=== PATIENT | female | born 2000 | race Hispanic/Latino ===

== ENCOUNTER 2018-03-29 20:08 | Emergency (ER) | payer BC ==
[2018-03-29 20:08] VITALS: BMI 18.5
[2018-03-29 20:40] VITALS: BP 131/77; PULSE 78; O2SAT 99
--- NOTE | 2018-03-29 20:49 | ED PDOC ---
Arrival/HPI - General Chief Complaint: Eye Problem Time Seen by Provider: 03/29/18 20:47 Historian: Patient - History of Present Illness Narrative History of Present Illness (Text): 03/29/18 20:30 pt p/w + sudden onset of right eye irritation/tearing/intense itching while [place]; pt states similar episode occurred to her right eye ~ [place] that time and states it improved on its own within 1 day; pt states she does not recollect using any new/current make ups, no new foods/ detergents/soaps/clothing, etc.; pt states no vision changes but is blurry from the right eye; pt did noted some faint yellow discharge prior to Emergency department arrival; pt denied bleeding, no headache, no fever/chills/sweats, no cp/sob/palpitations, no abd pain, no n/v, no numbness/tingling, no urinary/ bowel changes, no fall/trauma/sick contact, no travel. pt is here for further eval; Pt's without other complaints. PCP: Dr Hester Past medical hx: unremarkable Time/Duration: Prior to Arrival Symptom Onset: Sudden Symptom Course: Unchanged Severity Level: Severe Activities at Onset: Rest Context: Other (walking home from the train station) Past Medical History - Provider Review Nursing Documentation Reviewed: Yes - Travel History Have you recently traveled outside [place] w/in the past 3 mons?: No - Past History Past History: No Previous - Infectious Disease Hx of Infectious Diseases: None - Reproductive Menopause: No Currently : Unknown - Psychiatric Hx Psychophysiologic Disorder: No Hx Substance Use: No - Past Surgical History Past Surgical History: No Previous - Suicidal Assessment Feels Threatened In Home Enviroment: No Family/Social History - Physician Review Nursing Documentation Reviewed: Yes Family/Social History: No Known Family HX Smoking Status: Never Smoked Hx Alcohol Use: No Hx Substance Use: No Hx Substance Use Treatment: No Allergies/Home Meds Allergies/Adverse Reactions: Allergies No Known Allergies Allergy (Verified 03/29/18 20:12) Home Medications: Home Meds Medication Instructions Recorded Confirmed Cetirizine HCl [Zyrtec] 1 tab PO PRN PRN 03/29/18 03/29/18 Review of Systems - Review of Systems Constitutional: Normal Eyes: Other (right eye itching/swelling; teary). absent: Vision Changes, Photophobia, Eye Pain ENT: Normal Respiratory: Normal Cardiovascular: Normal Gastrointestinal: Normal Genitourinary Female: Normal Musculoskeletal: Normal Skin: Normal Neurological: Normal Endocrine: Normal Hemo/Lymphatic: Normal Psychiatric: Normal Physical Exam - Physical Exam Narrative Physical Exam (Text): 03/29/18 20:30 General: alert/awake, GCS = 15, oriented x 3, resting in bed, uncomfortable, cooperative, interactive; NAD Head: NC/AT EYE: PERRLA, EOMI, sclera anicteric, no nystagmus, no photophobia; noted right eye/eyelid mild swelling, + right lateral scleral clear injection/swelling is noted, does not traverse the cornea; no gross/copious eye discharge is noted, no gross bleeding, vision intact b/l; no FB/masses noted; no eyelid swelling/ tenderness/erythema is noted Facial: WNL Oral: uvula/tongue are midline, no exudate/lesions, no drooling/stridor, no dysphonia; intact dentitions; moist oral mucosa NECK: intact ROM, no midline tenderness, no nuchal rigidity, no meningeal signs ; no step off Chest: CTA b/l, no w/r/r; no tachypenia, no accessory muscle use noted Chest Wall: no crepitus, no lesions, no gross deformities, no focal tenderness Cardiac: +S1, +S2, no m/r/r, no tachycardia Abdominal: +BS, soft/nd/nt, well nourished patient; no masses/rebound/guarding/ rigidity; no barron's sign, no mcburney's point tenderness Extremities: intact ROM, strength 5/5 grossly intact in all limbs, neurovasc intact b/l; + ambulatory; reflex +2/2 BACK: no step off, no midline tenderness, NO crepitus, no gross deformities noted; Intact ROM SKIN: cap refill < 1 sec, no ulcerations, no petechiae, no rashes; no gross pallor, no urticarial changes noted NEURO: CNII-XII WNL, no facial asymmetries, no slurr speech, oriented x 3 NIH stroke scale ~ 0 Psych: normal insight, normal affect; follows command with ease Vital Signs Reviewed: Yes Vital Signs Temp Pulse Resp BP Pulse Ox 03/29/18 20:12 99.1 F 78 16 131/77 99 Temperature: Afebrile Blood Pressure: Normal Pulse: Regular Respiratory Rate: Normal Appearance: Positive for: Well-Appearing, Non-Toxic, Uncomfortable. No: Comfortable, Ill-Appearing Pain Distress: None Mental Status: Positive for: Alert and Oriented X 3 - Systems Exam Head: Present: Atraumatic, Normocephalic Medical Decision Making ED Course and Treatment: 03/29/182049 Impression: right eye irritation i have consider all the differential diagnosis regarding pt's chief medical complaints/clinical findings, including but are not limited to: right eye irritation A/P: right eye irritation - supportive care - observe/reevaluation 2199 pt is feeling improved right eye/scleral swelling has improved pt is now able to open right eye with ease, visual field remains intact pt/family are made aware of pt's medical results pt is encouraged/instructed on proper eye hygiene (not to rub her eyes with either hands and to keep left hand to left eye and right hand to right eye only) pt is encouraged no new foods/clothing/makeups/detergents/soaps, any new products pt will f/u as directed pt will be discharged home Re-evaluation Time: 22:00 Reassessment Condition: Improved - Medication Orders Current Medication Orders: Discontinued Medications Diphenhydramine HCl (Benadryl) 25 mg PO ONCE ONE Stop: 03/29/18 20:49 Last Admin: 03/29/18 21:10 Dose: 25 mg Prednisone (Prednisone Tab) 60 mg PO STAT ONE Stop: 03/29/18 20:49 Last Admin: 03/29/18 21:10 Dose: 60 mg Disposition/Present on Arrival - Present on Arrival Any Indicators Present on Arrival: No History of DVT/PE: No History of Uncontrolled Diabetes: No Urinary Catheter: No History of Decub. Ulcer: No History Surgical Site Infection Following: None - Disposition Have Diagnosis and Disposition been Completed?: Yes Diagnosis: Eye swelling, right, Allergic conjunctivitis, right eye Disposition: HOME/ ROUTINE Disposition Time: 22:10 Patient Plan: Discharge Patient Problems: Current Active Problems Problem Status Onset Allergic conjunctivitis, right eye Acute Eye swelling, right Acute Condition: STABLE Discharge Instructions (ExitCare): Conjunctivitis (Noninfectious Pinkeye) Print Language: SAUDI ARABIAN Additional Instructions: Make sure to see your doctor in 1-2 days DRINK PLENTY OF FLUIDS take your medications as prescribed AVOID new products/detergents/clothing etcs dont cross your hands when taking care of your eyes, encourage safe hygiene RETURN TO ED IF worse pain, CANT SEE, cant breath, persistent vomiting, high fever >101-102 for hours, altered behavior, slurr speech, facial changes, focal weakness (arm/leg or both), unable to urinate, heavy/persistent bleeding, passing out, chest pain, or other medical emergencies Prescriptions: DiphenhydrAMINE [Benadryl] 25 mg PO QID PRN #30 cap PRN Reason: Itching / Pruritus Ofloxacin Ophth 0.3% [Ocuflox Ophth 0.3%] 1 - 2 drop OD QID 7 Days #1 bottle predniSONE [Prednisone] 2 tab PO DAILY #8 tab Referrals: Warren Villarreal [Staff Provider] - Follow up with primary [facility] [employer] [Outside] - Follow up with primary Replaced By [facility] [Outside] - Follow up with primary [facility] [Outside] - Follow up with primary Forms: [employer] ([place]), WORK NOTE
[2018-03-29 22:38] VITALS: RESP 18; TEMP 98.1
== END 2018-03-29 22:00 | disposition home or self-care (01) ==
LOC: ED 20:08
DX: H10.11 Acute atopic conjunctivitis, right eye (principal)